=== PATIENT | female | born 1960 | race African-American/Black ===

== ENCOUNTER 2018-12-06 21:57 | Inpatient (IN) | payer SELFPAY ==
[2018-12-06 22:42] LABS: #Basophils 0.1 thou/uL (0.0-0.2); #Eosinphils 1.8 thou/uL (0.0-0.7); #Lymphocytes 4.1 thou/uL (1.20-3.40); #Neutrophils 7.1 thou/uL (1.40-6.50); %Basophils 0.9 % (0.0-1.0); %Neutrophils 50.1 % (42.0-75.0); Hemoglobin 13.7 g/dL (12.0-16.0); Mean Corpuscular HGB CONC 32.3 g/dL (32.0-36.0); Mean Corpuscular Hemoglobin 28.5 pg (27.0-31.0); Mean Corpuscular Volume 88.4 fL (78.0-98.0); Platelet Count 260 thou/uL (130-400); RBC Distribution Width 14.4 % (11.5-14.5); Red Blood Cell (RBC) Count 4.79 mill/uL (4.20-5.40); White Blood Cell (WBC) Count 14.1 thou/uL (4.8-10.8)
--- NOTE | 2018-12-06 22:46 | RAD ---
CHEST ONE VIEW: 12/06/18 HISTORY: Dyspnea. Wheezing. COMPARISON: 09/27/09. FINDINGS: The cardiac silhouette is magnified by projection. Pulmonary vasculature is upper limits of normal. S ubtle increase in parenchymal opacity at the right posterior lung base. No evidence of pneumothorax. patient monitor leads overlie the chest. IMPRESSION: Subtle right lower lobe parenchymal opacity. Clinical correlation regarding other signs and symptoms of right lower lobe pneumonitis is required. Please consider upright PA and lateral views of the ches t for better evaluation when patient can undergo that exam. POS: MADINA
[2018-12-06 23:01] LABS: ALT (SGPT) 13 U/L (8-55); AST (SGOT) 15 U/L (5-34); Albumin 3.9 g/dL (3.5-5.0); Alkaline Phosphatase 98 U/L (40-150); Anion Gap 15 mmol/L (10-20); BUN (Urea Nitrogen) 12 mg/dL (9.8-20.1); Bilirubin, Total 0.2 mg/dL (0.2-1.2); Calc. Creatinine Clearance 0 mL/min (70-130); Calcium 8.9 mg/dL (7.8-10.44); Carbon Dioxide 20 mmol/L (22-29); Chloride 111 mmol/L (98-107); Estimated GFR-MDRD 74; Globulin 3.6 g/dL (2.4-3.5); Glucose 111 mg/dL (70-105); Potassium 3.6 mmol/L (3.5-5.1); Protein, Total 7.5 g/dL (6.0-8.3); Sodium 142 mmol/L (136-145)
[2018-12-06] MEDS ORDERED: Acetaminophen 500 MG TAB ONE (23:34)
[2018-12-07] MEDS ORDERED: Acetaminophen 325 MG TAB PO PRN (00:33)
[2018-12-07] MEDS ORDERED: Ondansetron ODT 4 MG TAB PO PRN (00:33)
[2018-12-07] MEDS ORDERED: Amlodipine 5 MG TAB ONE (00:50)
[2018-12-07] MEDS ORDERED: cloNIDine 0.1 MG TAB PO PRN (01:57)
[2018-12-07] MEDS ORDERED: hydrALAZINE 20 MG/ML VIAL SLOW IVP PRN (02:02)
[2018-12-07] MEDS ORDERED: Lisinopril 20 MG TAB PO SCH ×2 (02:15→09:00)
[2018-12-07] MEDS ORDERED: Amlodipine 10 MG TAB PO SCH (03:00)
[2018-12-07 03:03] VITALS: BMI 34.8
--- NOTE | 2018-12-07 03:17 | HP ---
PRIMARY CARE DOCTOR: CODE STATUS: Full code. TIME OF EVALUATION: 1220. CHIEF COMPLAINT: Shortness of breath. HISTORY OF PRESENT ILLNESS: This is a 58-year-old female patient, with past medical history of 40 years of smoking, COPD probably undiagnosed, hypertension, asthma. The patient came to the hospital after having severe, gradually worsening shortness of breath associated with audible wheezing with no clear triggers, no alleviating factors. The patient reported symptoms have been going on for the past 2 weeks , and she has completed treatment with Z-Abrahan and Solu-Medrol tapering package. She has reported that she has not been getting better. She also reported associated yellow sputum. She had some treatment with DuoNeb in the ER, however, still having wheezing and difficulty breathing. REVIEW OF SYSTEMS: CONSTITUTIONAL: No fever, chills, or generalized weakness. RESPIRATORY: The patient has cough, has yellow sputum production, shortness of breath, wheezing. CARDIOVASCULAR: No chest pain or palpitation. GASTROINTESTINAL: No nausea, no vomiting, diarrhea, or abdominal pain. [employer]GER: No dizziness, headache, or feeling lightheaded. GENITOURINARY: No burning on urination. EXTREMITIES: No leg swelling. All other systems were reviewed and negative except for the findings mentioned above. PAST MEDICAL HISTORY: Mentioned in the HPI. FAMILY HISTORY: Positive for father having heart problems. SURGICAL HISTORY: Hysterectomy. PSYCHIATRIC HISTORY: No psychiatric history. SOCIAL HISTORY: The patient smokes more than a pack per day. No alcohol. No drug use. KNOWN ALLERGIES: No known drug allergies. REPORTED MEDICATIONS: Albuterol, amlodipine, allopurinol, and Zyrtec. PHYSICAL EXAMINATION: VITAL SIGNS: On presentation, blood pressure 240/141 with a heart rate 136, respiratory rate was 32, pain 0/10, oxygen saturation was 94%. Blood pressure was better controlled during my examination with systolic 170s and diastolic 100. GENERAL APPEARANCE: The patient is alert, oriented, not in acute distress. HEENT: Eyes; normal conjunctivae. Moist oral mucosa. Anicteric. NECK: No JVD. RESPIRATORY: Bilateral air entry is decreased. The patient has bilateral wheezing, no rhonchi, symmetric expansion. CARDIOVASCULAR: The patient is tachycardic, regular rhythm, no murmurs, no gallop, no edema. ABDOMEN: Soft. Normal bowel sounds. MUSCULOSKELETAL: Baseline range of motion and strength. No tenderness. SKIN: Warm, intact. No pallor. No rash. No redness. Peripheral pulses are present. Capillary refill seems to be intact. NEUROLOGICAL: No evidence of any new focal weakness. Baseline speech. Cranial nerves seems to be intact. PSYCHIATRIC: The patient is in good mood. No anxiety. Optimal judgment. IMAGING STUDIES: EKG was reviewed. The patient has sinus tachycardia at the rate of 111, LA 148, QRS 82, QT corrected 492 which is mildly prolonged for this patient. Chest x-ray was reviewed. The patient has right lower lobe parenchymal opacity , possible right lower lobe pneumonitis. LABORATORY DATA: Reviewed. White count 14.1, hemoglobin 13.7, platelet count 260. Sodium 142, potassium 3.6, chloride 111, carbon dioxide was 20, anion gap was 15 , BUN was 12, creatinine 0.94, GFR 74, glucose , calcium 9.9, bilirubin 0.2. LFTs were negative. B-type natriuretic peptide was 137.6. Albumin globulin ratio is 1.1, globulin 3.6, albumin 3.9. Serum total protein 7.5. ASSESSMENT AND PLAN: The patient will be placed in the hospital with following medical problems: 1. Acute asthma exacerbation and may be also a component of chronic obstructive pulmonary disease exacerbation that had been undiagnosed. The patient does not report any history, however, the patient has been smoking for more than 40 years , has cigarette smoke more than a pack per day, continue nebs and steroids, antibiotics, oxygen support as needed. 2. Right lower lobe pneumonia, seen on chest x-ray. The patient has a history of getting antibiotics and steroids for the past 2 weeks. The patient also having yellow sputum production. We will treat with antibiotics, follow cultures, we will adjust treatment as needed. 3. Possible sepsis. The patient is tachypneic with white count 14.1, possible right lower lobe pneumonia, source of sepsis. The patient is on antibiotics, we will adjust as per sensitivity. 4. Hypertensive urgency. The patient has no significant symptoms; however, blood pressure is very high, during the time of my examination, has come down to 175/ 110. We will reconcile home medications and we will put the patient on IV p.r.n. medications. 5. Deep venous thrombosis prophylaxis. Job ID: [id number] [facility]
[2018-12-07 05:31] LABS: #Monocytes 0.1 thou/uL (0.11-0.59); #Neutrophils 8.5 thou/uL (1.40-6.50); %Basophils 0.4 % (0.0-1.0); %Eosinophils 0.1 % (0.0-10.0); %Monocytes 0.5 % (0.0-10.0); Mean Corpuscular HGB CONC 32.7 g/dL (32.0-36.0); Mean Corpuscular Hemoglobin 28.8 pg (27.0-31.0); Mean Corpuscular Volume 88.1 fL (78.0-98.0); Mean Platelet Volume 7.2 fL (7.4-10.4); Platelet Count 255 thou/uL (130-400); RBC Distribution Width 14.4 % (11.5-14.5); Red Blood Cell (RBC) Count 4.84 mill/uL (4.20-5.40); White Blood Cell (WBC) Count 9.5 thou/uL (4.8-10.8)
[2018-12-07 05:48] LABS: Anion Gap 17 mmol/L (10-20); BUN (Urea Nitrogen) 12 mg/dL (9.8-20.1); Calc. Creatinine Clearance 97 mL/min (70-130); Calcium 9.2 mg/dL (7.8-10.44); Carbon Dioxide 21 mmol/L (22-29); Chloride 108 mmol/L (98-107); Estimated GFR-MDRD 67; Glucose 194 mg/dL (70-105); Potassium 3.8 mmol/L (3.5-5.1); Sodium 142 mmol/L (136-145)
[2018-12-07] MEDS ORDERED: methylPREDNISolone Sod Succ 40 MG VIAL IVP SCH (06:00)
[2018-12-07] MEDS ORDERED: Enoxaparin Sodium 40 MG/0.4 ML SYRINGE SC SCH (09:00)
[2018-12-07] MEDS ORDERED: Azithromycin 250 MG TAB PO SCH (11:00)
[2018-12-07] MEDS ORDERED: guaiFENesin ER 600 MG TAB PO SCH (12:00)
[2018-12-07] MEDS: methylPREDNISolone Sod Succ 40 MG VIAL IVP SCH ×2 (14:24→23:25)
--- NOTE | 2018-12-07 18:59 | PDOC.PN ---
- Subjective Encounter Start Date: 12/07/18 Encounter Start Time: 10:30 Patient seen and examined for COPD exacerbation. Productive cough +. SOB and wheezing improving. No other complaints. No overnight events - Objective Resuscitation Status - Order Detail: 12/07/18 00:33 Resuscitation Status Routine Resuscitation Status: FULL: Full Resuscitation MAR Reviewed: Yes Vital Signs & Weight: Vital Signs (12 hours) Temp Pulse Resp BP Pulse Ox 12/07/18 18:52 108 H 20 94 L 12/07/18 16:13 98.1 F 108 H 18 167/90 H 92 L 12/07/18 15:58 98.1 F 108 H 18 167/90 H 92 L 12/07/18 14:06 110 H 16 12/07/18 12:44 97.8 F 113 H 20 162/93 H 94 L 12/07/18 10:33 110 H 16 12/07/18 09:08 168/81 H 12/07/18 08:00 97.8 F 105 H 18 182/93 H 93 L Weight Weight 229 lb 4.492 oz I&O: 12/06/18 12/07/18 12/08/18 06:59 06:59 06:59 Intake Total 700 700 Balance 700 700 Result Diagrams: 12/07/18 04:55 12/07/18 04:55 Radiology Reviewed by me: Yes (CXR - RLL infiltrate) Phys Exam - Physical Examination Constitutional: NAD Respiratory: no rales, wheezing present Mild accessory muscle use, Scat rhonchi Cardiovascular: RRR, no rub no heaves/pulsations Gastrointestinal: soft, non-tender, no distention, positive bowel sounds Musculoskeletal: no edema, pulses present Neurological: non-focal, moves all 4 limbs Psychiatric: normal affect, A&O x 3 Skin: no rash Dx/Plan - Plan 1. Sepsis due to RLL Pneumonia ?Pneumococcal 2. Asthma/COPD Exacerbation 3. CKD 2 4. Obesity BMI 34.9 5. Tobacco dep 6. HTN PLAN: DC Levaquin Add IV Ceftriaxone Start PO Azithromycin Cont Nebs Taper Steroids Cont Amlodipine Counselled to quit smoking Review of Systems - Review of Systems Constitutional: negative: fever, chills, sweats, weakness, malaise, other Gastrointestinal: negative: Nausea, Vomiting, Abdominal Pain, Diarrhea, Constipation, Melena, Hematochezia, Other - Medications/Allergies Allergies/Adverse Reactions: Allergies Allergy/AdvReac Type Severity Reaction Status Date / Time lisinopril Allergy Verified 12/07/18 02:23 Medications: Current Medications Acetaminophen (Tylenol) 650 mg PO Q4H PRN PRN Reason: Headache/Fever/Mild Pain (1-3) Last Admin: 12/07/18 12:38 Dose: 650 mg Albuterol/Ipratropium (Duoneb) 3 ml NEB [id number] Last Admin: 12/07/18 18:52 Dose: 3 ml Amlodipine Besylate (Norvasc) 10 mg PO Q24HR [facility] Azithromycin (Zithromax) 250 mg PO DAILY [facility] Stop: 12/11/18 09:01 Clonidine (Catapres) 0.1 mg PO Q4H PRN PRN Reason: SBP > 180 Famotidine (Pepcid) 20 mg PO BID [facility] Guaifenesin (Mucinex) 600 mg PO Q12HR [facility] Hydralazine HCl (Apresoline) 10 mg SLOW IVP Q4H PRN PRN Reason: BP>180/100 Ceftriaxone Sodium 2 gm/ (Sodium Chloride) 100 mls @ 200 mls/hr IVPB Q24HR [facility] Methylprednisolone Sodium Succinate (Solu-Medrol) 20 mg IVP Q8HR [facility] Stop: 12/07/18 23:59 Last Admin: 12/07/18 14:24 Dose: 20 mg Ondansetron HCl (Zofran Odt) 4 mg PO Q6H PRN PRN Reason: Nausea/Vomiting Prednisone (Prednisone) 20 mg PO QAM-[facility]
[2018-12-07] MEDS ORDERED: cefTRIAXone\\ROCEPHIN 2 GM in Sodium Chloride 0.9% 100 ML IVPB SCH (20:00)
[2018-12-07] MEDS: Amlodipine 10 MG TAB PO SCH (20:12)
[2018-12-07] MEDS: guaiFENesin ER 600 MG TAB PO SCH (20:12)
[2018-12-07] MEDS: Famotidine 20 MG TAB PO SCH (20:12)
[2018-12-07] MEDS ORDERED: Ibuprofen 600 MG TAB PO PRN (22:39)
[2018-12-07] MEDS: cefTRIAXone\\ROCEPHIN 2 GM in Sodium Chloride 0.9% 100 ML IVPB SCH (23:56)
[2018-12-08] MEDS ORDERED: predniSONE 20 MG TAB PO SCH (08:00)
[2018-12-08] MEDS ORDERED: Amlodipine 10 MG TAB PO SCH (09:00)
[2018-12-08] MEDS: Famotidine 20 MG TAB PO SCH ×2 (09:06→21:12)
[2018-12-08] MEDS: Azithromycin 250 MG TAB PO SCH (09:06)
[2018-12-08] MEDS: guaiFENesin ER 600 MG TAB PO SCH ×2 (09:06→21:12)
[2018-12-08] MEDS: Amlodipine 10 MG TAB PO SCH (21:12)
--- NOTE | 2018-12-08 22:51 | PDOC.PN ---
- Subjective Encounter Start Date: 12/08/18 Encounter Start Time: 12:00 Patient seen and examined for Pneumonia/COPD exacerbation. SOB on mild exertion. No fever. Productive cough +. No other complaints. No overnight events - Objective Resuscitation Status - Order Detail: 12/07/18 00:33 Resuscitation Status Routine Resuscitation Status: FULL: Full Resuscitation MAR Reviewed: Yes Vital Signs & Weight: Vital Signs (12 hours) Temp Pulse Resp BP BP BP Pulse Ox 12/08/18 21:12 106 H 156/83 H 12/08/18 20:42 97.8 F 106 H 20 153/83 H 96 12/08/18 19:15 95 12/08/18 15:32 108 H 20 95 12/08/18 15:26 98.0 F 106 H 18 156/83 H 12/08/18 12:00 97.8 F 108 H 20 156/76 H 92 L 12/08/18 11:08 106 H 20 95 Weight Weight 229 lb 4.492 oz I&O: 12/07/18 12/08/18 12/09/18 06:59 06:59 06:59 Intake Total 700 1600 Balance 700 1600 Result Diagrams: 12/07/18 04:55 12/07/18 04:55 Radiology Reviewed by me: Yes (CXR - Pneumonia) Phys Exam - Physical Examination Constitutional: NAD Respiratory: wheezing present Right sided rales/rhonchi Cardiovascular: RRR, no rub Gastrointestinal: soft, non-tender, positive bowel sounds Musculoskeletal: no edema Neurological: non-focal, moves all 4 limbs Dx/Plan - Plan DVT proph w/SCDs 1. Sepsis due to RLL Pneumonia ?Pneumococcal 2. Asthma/COPD Exacerbation 3. CKD 2 4. Obesity BMI 34.9 5. Tobacco dep - Counselled. 6. HTN PLAN: cont IV Ceftriaxone/ PO Azithromycin Cont Nebs Cont PO Prednisone DC in 24-48 hr if stable Review of Systems - Review of Systems Cardiovascular: negative: chest pain, palpitations, orthopnea, paroxysmal nocturnal dyspnea, edema, light headedness, other Gastrointestinal: negative: Nausea, Vomiting, Abdominal Pain, Diarrhea, Constipation, Melena, Hematochezia, Other - Medications/Allergies Allergies/Adverse Reactions: Allergies Allergy/AdvReac Type Severity Reaction Status Date / Time lisinopril Allergy Verified 12/07/18 02:23 Medications: Current Medications Acetaminophen (Tylenol) 650 mg PO Q4H PRN PRN Reason: Headache/Fever/Mild Pain (1-3) Last Admin: 12/07/18 12:38 Dose: 650 mg Albuterol/Ipratropium (Duoneb) 3 ml NEB [id number] [facility] Last Admin: 12/08/18 19:15 Dose: 3 ml Amlodipine Besylate (Norvasc) 10 mg PO Q24HR [facility] Last Admin: 12/08/18 21:12 Dose: 10 mg Azithromycin (Zithromax) 250 mg PO DAILY [facility] Stop: 12/11/18 09:01 Last Admin: 12/08/18 09:06 Dose: 250 mg Clonidine (Catapres) 0.1 mg PO Q4H PRN PRN Reason: SBP > 180 Famotidine (Pepcid) 20 mg PO BID [facility] Last Admin: 12/08/18 21:12 Dose: 20 mg Guaifenesin (Mucinex) 600 mg PO Q12HR [facility] Last Admin: 12/08/18 21:12 Dose: 600 mg Hydralazine HCl (Apresoline) 10 mg SLOW IVP Q4H PRN PRN Reason: BP>180/100 Ceftriaxone Sodium 2 gm/ (Sodium Chloride) 100 mls @ 200 mls/hr IVPB 2359 [facility] Last Admin: 12/07/18 23:56 Dose: Not Given Ibuprofen (Motrin) 600 mg PO Q6H PRN PRN Reason: Fever/Mild Pain Last Admin: 12/07/18 22:51 Dose: 600 mg Ondansetron HCl (Zofran Odt) 4 mg PO Q6H PRN PRN Reason: Nausea/Vomiting Prednisone (Prednisone) 20 mg PO QAM-[facility] Last Admin: 12/08/18 09:06 Dose: 20 mg
[2018-12-08] MEDS: cefTRIAXone\\ROCEPHIN 2 GM in Sodium Chloride 0.9% 100 ML IVPB SCH (22:59)
[2018-12-09] MEDS: Famotidine 20 MG TAB PO SCH ×2 (08:28→20:21)
[2018-12-09] MEDS: predniSONE 20 MG TAB PO SCH ×2 (08:28→17:29)
[2018-12-09] MEDS: guaiFENesin ER 600 MG TAB PO SCH ×2 (08:28→20:20)
[2018-12-09] MEDS: Azithromycin 250 MG TAB PO SCH (08:28)
[2018-12-09] MEDS: Nicotine 14 MG PATCH TD PRN (12:54)
[2018-12-09] MEDS: Amlodipine 10 MG TAB PO SCH (20:20)
--- NOTE | 2018-12-09 22:23 | PDOC.PN ---
- Subjective Encounter Start Date: 12/09/18 Encounter Start Time: 12:00 Patient seen and examined for Pneumonia/COPD exacerbation. Wheezing +. No new complaints. No overnight events - Objective Resuscitation Status - Order Detail: 12/07/18 00:33 Resuscitation Status Routine Resuscitation Status: FULL: Full Resuscitation MAR Reviewed: Yes Vital Signs & Weight: Vital Signs (12 hours) Temp Pulse Resp BP Pulse Ox 12/09/18 20:43 98 18 96 12/09/18 20:21 98.2 F 99 18 176/87 H 95 12/09/18 20:20 103 H 12/09/18 15:23 97.5 F L 98 18 134/93 H 97 12/09/18 14:10 107 H 18 97 12/09/18 11:18 97.6 F 103 H 18 161/93 H 95 Weight Weight 229 lb 4.492 oz I&O: 12/08/18 12/09/18 12/10/18 06:59 06:59 06:59 Intake Total 1600 1625 Balance 1600 1625 Result Diagrams: 12/07/18 04:55 12/07/18 04:55 Phys Exam - Physical Examination Constitutional: NAD Respiratory: no wheezing, no rhonchi Cardiovascular: RRR, no rub Gastrointestinal: soft, non-tender, positive bowel sounds Musculoskeletal: no edema Neurological: moves all 4 limbs Dx/Plan - Plan DVT proph w/SCDs 1. Sepsis due to RLL Pneumonia ?Pneumococcal 2. Asthma/COPD Exacerbation 3. CKD 2 4. Obesity BMI 34.9 5. Tobacco dep - Counselled. 6. HTN PLAN: cont Atbx Cont Nebs and Prednisone DC in 24-48 hr if stable Review of Systems - Review of Systems Respiratory: Cough, Dry, Wheezing Cardiovascular: negative: chest pain, palpitations, orthopnea, paroxysmal nocturnal dyspnea, edema, light headedness, other Gastrointestinal: negative: Nausea, Vomiting, Abdominal Pain, Diarrhea, Constipation, Melena, Hematochezia, Other - Medications/Allergies Allergies/Adverse Reactions: Allergies Allergy/AdvReac Type Severity Reaction Status Date / Time lisinopril Allergy Verified 12/07/18 02:23 Medications: Current Medications Acetaminophen (Tylenol) 650 mg PO Q4H PRN PRN Reason: Headache/Fever/Mild Pain (1-3) Last Admin: 12/07/18 12:38 Dose: 650 mg Albuterol/Ipratropium (Duoneb) 3 ml NEB [id number] Last Admin: 12/09/18 20:43 Dose: 3 ml Amlodipine Besylate (Norvasc) 10 mg PO Q24HR [facility] Last Admin: 12/09/18 20:20 Dose: 10 mg Azithromycin (Zithromax) 250 mg PO DAILY [facility] Stop: 12/11/18 09:01 Last Admin: 12/09/18 08:28 Dose: 250 mg Clonidine (Catapres) 0.1 mg PO Q4H PRN PRN Reason: SBP > 180 Famotidine (Pepcid) 20 mg PO BID [facility] Last Admin: 12/09/18 20:21 Dose: 20 mg Guaifenesin (Mucinex) 600 mg PO Q12HR [facility] Last Admin: 12/09/18 20:20 Dose: 600 mg Hydralazine HCl (Apresoline) 10 mg SLOW IVP Q4H PRN PRN Reason: BP>180/100 Ceftriaxone Sodium 2 gm/ (Sodium Chloride) 100 mls @ 200 mls/hr IVPB 2359 [facility] Last Admin: 12/08/18 22:59 Dose: 100 mls Ibuprofen (Motrin) 600 mg PO Q6H PRN PRN Reason: Fever/Mild Pain Last Admin: 12/07/18 22:51 Dose: 600 mg Nicotine (Nicoderm Patch) 14 mg TD Q24HR PRN PRN Reason: Smoking craving Last Admin: 12/09/18 12:54 Dose: 14 mg Ondansetron HCl (Zofran Odt) 4 mg PO Q6H PRN PRN Reason: Nausea/Vomiting Prednisone (Prednisone) 20 mg PO BID-[facility] Last Admin: 12/09/18 17:29 Dose: 20 mg
[2018-12-09] MEDS: cefTRIAXone\\ROCEPHIN 2 GM in Sodium Chloride 0.9% 100 ML IVPB SCH ×2 (23:27→23:44)
[2018-12-10] MEDS ORDERED: Cefdinir 300 MG CAP PO SCH (00:45)
[2018-12-10] MEDS: Famotidine 20 MG TAB PO SCH ×2 (08:56→22:05)
[2018-12-10] MEDS: Azithromycin 250 MG TAB PO SCH (08:56)
[2018-12-10] MEDS: predniSONE 20 MG TAB PO SCH ×2 (08:56→17:12)
[2018-12-10] MEDS: Cefdinir 300 MG CAP PO SCH ×2 (08:56→22:06)
[2018-12-10] MEDS: guaiFENesin ER 600 MG TAB PO SCH ×2 (08:56→22:06)
--- NOTE | 2018-12-10 12:46 | PRG ---
DATE OF SERVICE: 12/10/2018 SUBJECTIVE: The patient is seen and examined at the bedside. She is feeling significantly better. Her appetite is good. OBJECTIVE: VITAL SIGNS: Blood pressure is 155/81, pulse is 98, temperature is 97.7, respiratory rate is 22, O2 saturation is 94% on room air. HEENT: Head is atraumatic and normocephalic. Eyes are PERRLA. Sclerae nonicteric. Conjunctivae pinkish. Oral mucosa is moist. NECK: Supple. LUNGS: She has few wheezes at both bases and slightly diminished breath sounds at both bases. HEART: S1 and S2 normal. No S3. No S4. ABDOMEN: Soft, obese, nontender. EXTREMITIES: No clubbing, cyanosis, or edema. NEUROLOGIC: She is alert and oriented x4. There is no any sensory or motor deficits present. Cranial nerves are intact. LABORATORY DATA: None. IMPRESSION: 1. Sepsis due to right lower lobe pneumonia. 2. Asthma. 3. Chronic obstructive pulmonary disease exacerbation. 4. Chronic kidney disease, stage 2. 5. Obesity. 6. Hypertension. PLAN: Planning to continue her oral antibiotics. Increased ambulation today. She is asking me to stay additional day because she has difficult condition at home and she feels like she would benefit from staying additional day in the hospital and getting more rest prednisone to 30 mg tomorrow and DuoNeb. Job ID: [id number]
[2018-12-10] MEDS: Amlodipine 10 MG TAB PO SCH (22:05)
[2018-12-11 04:50] VITALS: TEMP 97.7
[2018-12-11] MEDS ORDERED: predniSONE 20 MG TAB PO SCH (09:00)
[2018-12-11] MEDS: Azithromycin 250 MG TAB PO SCH (09:15)
[2018-12-11] MEDS: Famotidine 20 MG TAB PO SCH (09:15)
[2018-12-11] MEDS: Cefdinir 300 MG CAP PO SCH (09:15)
[2018-12-11] MEDS: guaiFENesin ER 600 MG TAB PO SCH (09:15)
--- NOTE | 2018-12-11 10:07 | DIS ---
DATE OF ADMISSION: 12/06/2018 DATE OF DISCHARGE: 12/11/2018 FINAL DIAGNOSES: 1. Sepsis due to right lower lobe pneumonia. 2. Asthma. 3. Chronic obstructive pulmonary disease exacerbation. 4. Chronic kidney disease, stage 2. 5. Obesity. 6. Hypertension. HOSPITAL COURSE: The patient is a 58-year-old female, who has a past medical history of 40 years of smoking, COPD, probably undiagnosed hypertension and asthma, who was admitted to the hospital with severe gradually worsening shortness of breath associated with audible wheezing with no clear triggers x2 weeks. She had completed treatment with Z-Abrahan and Solu-Medrol tapering package, but she was not getting any better. She was seen by emergency room physician, was treated with breathing treatments, but did not get much better, so decision was made about the hospitalization during this admission. Her white count was up to 14.1, hemoglobin 13.7, and platelet count 260,000. Electrolytes were within normal limits. Her creatinine was 0.94. BNP was 137.6. Her chest x-ray showed right lower lobe parenchymal opacity, possible right lower lobe pneumonitis. EKG shows sinus tachycardia with mildly prolonged QT. The patient got admitted to the hospital. She was placed on antibiotic. She is on Levaquin, then switched to ceftriaxone and azithromycin. She was started on DuoNeb and she was started on steroids. Her pulmonary condition improved quickly. She was switched to Omnicef and her azithromycin was a 5-day course, finished. Her steroids were gradually tapered. PHYSICAL EXAMINATION: GENERAL: Today, she is doing well. VITAL SIGNS: Her blood pressure is 179/85, that is before taking her morning medications. Her pulse is 88, temperature is 97.7, respiratory rate is 20, and O2 saturation is 96% on room air. LUNGS: Clear. HEART: S1 and S2 normal. No S3. No S4. No any murmur. ABDOMEN: Soft, nontender, and obese. EXTREMITIES: No clubbing, cyanosis, or edema. DISPOSITION: She is discharged home in good condition. DISCHARGE MEDICATIONS: At the time of discharge; 1. Amlodipine 10 mg once a day. 2. Allopurinol 100 mg once a day. 3. Nicoderm patch 14 mg once a day. 4. Prednisone tapering dose 30 mg once a day x2 days, then 20 mg once a day x2 days, then 10 mg once a day x2 days. She will receive 30 mg today before she leaves the hospital. Also, she will continue her cefdinir 300 mg twice a day for 5 more days and I am going to give her prescription for albuterol to use it p.r.n. as needed at home. Also, she will continue her cetirizine, which is Zyrtec 10 mg once a day. I am going to give her prescription for hydrochlorothiazide 12.5 mg once a day and her blood pressure should be getting better since we started tapering her prednisone dose. FOLLOWUP: She will follow up with her primary care physician, Dr. Merlos in 1 week. ACTIVITIES: As tolerated. DIET: Heart healthy. TIME SPENT: The discharge is less than 30 minutes. Job ID: [id number]
[2018-12-11] MEDS: Nicotine 14 MG PATCH TD PRN (11:53)
[2018-12-11 11:57] VITALS: BP 167/113
== END 2018-12-11 15:03 | disposition home or self-care (01) | DRG 871 ==
LOC: ERS 21:57 → OBSVTOIN 23:48 → SURG A 23:48
PROVIDERS: ADMIT Hospitalist; ATTEND Hospitalist
DX: A41.9 Sepsis, unspecified organism (principal); J18.9 Pneumonia, unspecified organism; J45.901 Unspecified asthma with (acute) exacerbation; J44.0 Chronic obstructive pulmonary disease with (acute) lower respiratory infection; J44.1 Chronic obstructive pulmonary disease with (acute) exacerbation; F17.210 Nicotine dependence, cigarettes, uncomplicated; I16.0 Hypertensive urgency; N18.2 Chronic kidney disease, stage 2 (mild); E66.9 Obesity, unspecified; I12.9 Hypertensive chronic kidney disease with stage 1 through stage 4 chronic kidney disease, or unspecified chronic kidney disease; Z68.34 Body mass index [BMI] 34.0-34.9, adult; Z79.899 Other long term (current) drug therapy; Z88.8 Allergy status to other drugs, medicaments and biological substances
CPT/HCPCS: 36415; 71045; 80048; 80053; 83880; 84484; 85025; 93005; 94640; J0360; J0696; J1650; J1956; J2920; J7050; J7620

== ENCOUNTER 2019-03-12 05:00 | Emergency (ER) | payer SELFPAY ==
[2019-03-12] MEDS ORDERED: EPINEPHrine 1 MG/10 ML Abboject SYRINGE ONE (15:00)
[2019-03-12] MEDS ORDERED: Sodium Bicarb 50 MEQ/50 ML Abboject 8.4% SYRINGE ONE (15:00)
[2019-03-12] MEDS ORDERED: Dextrose 50% Abboject 50 ML SYRINGE ONE (15:00)
[2019-03-12] MEDS ORDERED: Magnesium 5 GM/10 ML Abboject SYRINGE ONE (15:00)
== END 2019-03-12 05:21 | disposition expired ==
LOC: ERS 05:00
DX: I46.9 Cardiac arrest, cause unspecified (principal); I10 Essential (primary) hypertension; F17.210 Nicotine dependence, cigarettes, uncomplicated
CPT/HCPCS: 31500; 92950; 96374; 96375; J0171; J3475